=== PATIENT | female | born 1990 | race Caucasian/White ===

== ENCOUNTER 2022-03-20 17:54 | Emergency (ER) | payer SELFPAY ==
[2022-03-20 19:17] LABS: #Eosinphils 0.2 10x3/uL (0.0-0.5); #Monocytes 0.4 10x3/uL (0.0-1.1); #Neutrophils 5.8 10x3/uL (1.5-8.4); %Basophils 0.4 % (0.0-2.0); %Eosinophils 2.4 % (0.0-6.0); %Lymphocytes 20.7 % (18.0-47.0); %Monocytes 4.7 % (0.0-10.0); %Neutrophils 71.4 % (40.0-75.0); Hemoglobin 11.6 g/dL (12.0-15.5); Mean Corpuscular HGB CONC 33.5 g/dL (32.0-36.0); Mean Corpuscular Hemoglobin 30.4 pg (27.0-33.0); Mean Corpuscular Volume 90.6 fl (81.6-98.3); Mean Platelet Volume 9.3 fl (7.4-10.4); Platelet Count 276 10x3/uL (150-450); RBC Distribution Width 12.8 % (11.5-14.5); Red Blood Cell (RBC) Count 3.82 10x6/uL (3.90-5.03); White Blood Cell (WBC) Count 8.1 10x3/uL (3.5-10.5)
[2022-03-20 19:21] LABS: Bilirubin Neg (Negative); Blood, Urine Negative (Negative); Clarity Clear (Clear); Glucose, Urine (Dipstick) Normal (Negative); Ketone, Urine 15 mg/dL (Negative); Leukocyte 25 (Negative); Nitrite Negative (Negative); Protein, Urine (Dipstick) Negative (Neg-Trace); Specific Gravity, Urine 1.025 (1.002-1.036); Urobilinogen Normal mg/dL (Less than 2)
[2022-03-20 19:30] LABS: ALT (SGPT) 16 U/L (8-55); AST (SGOT) 20 U/L (5-34); Albumin 3.9 g/dL (3.5-5.0); Alkaline Phosphatase 49 U/L (40-110); Anion Gap 13 mmol/L (10-20); BUN (Urea Nitrogen) 13 mg/dL (7.0-18.7); Bilirubin, Total 0.3 mg/dL (0.2-1.2); Calc. Creatinine Clearance 0 mL/min (70-130); Calcium 9.3 mg/dL (7.8-10.44); Carbon Dioxide 24 mmol/L (22-29); Chloride 103 mmol/L (98-107); Globulin 3.3 g/dL (2.4-3.5); Glucose 138 mg/dL (70-105); Potassium 3.7 mmol/L (3.5-5.1); Protein, Total 7.2 g/dL (6.0-8.3); Sodium 136 mmol/L (136-145)
[2022-03-20 19:40] LABS: Bacteria/HPF 2+ HPF (None Seen); RBC/HPF 0-3 HPF (0-3); Squamous Epithelial 0-3 HPF (0-3)
[2022-03-20 19:41] LABS: Mucous/LPF 2+ LPF (<2+)
[2022-03-20 22:09] LABS: Fetal Membranes Rupture No Membranes Rupture (No Rupture)
[2022-03-22 15:08] LABS: GC by PCR *Indeterminate (NotDetected)
[2022-03-22 15:09] LABS: Chlamydia by PCR *Indeterminate (NotDetected)
== END 2022-03-20 22:53 | disposition home or self-care (01) ==
LOC: CSHERS 17:54
DX: O23.42 Unspecified infection of urinary tract in pregnancy, second trimester (principal); O23.592 Infection of other part of genital tract in pregnancy, second trimester; N89.8 Other specified noninflammatory disorders of vagina; Z3A.15 15 weeks gestation of pregnancy
CPT/HCPCS: 36415; 76815; 80053; 81003; 81015; 84112; 84702; 85025; 86900; 86901; 87086; 87480; 87491; 87510; 87591; 87660

== ENCOUNTER 2022-07-12 12:50 | Day surgery (SDC) | payer OTHER ==
[2022-07-12 13:20] VITALS: BMI 27.3
== END 2022-07-12 16:20 | disposition home health service (06) ==
LOC: CSHLD/OP 12:50
PROVIDERS: ATTEND Student in an Organized Health Care Education/Training Program
DX: O36.8130 Decreased fetal movements, third trimester, not applicable or unspecified (principal); O9A.213 Injury, poisoning and certain other consequences of external causes complicating pregnancy, third trimester; S39.91XA Unspecified injury of abdomen, initial encounter; Z3A.31 31 weeks gestation of pregnancy; Z98.818 Other dental procedure status; Z79.899 Other long term (current) drug therapy; W50.0XXA Accidental hit or strike by another person, initial encounter
CPT/HCPCS: 59025; 76819; 99282

== ENCOUNTER 2022-08-31 12:32 | Inpatient (IN) | payer SELFPAY ==
[~2022-08-31 12:32] MED LIST: Bupivacaine/Epinephrine 0.25% 30 ML VIAL ONE
[2022-08-31] MEDS ORDERED: hydrALAZINE 20 MG/ML VIAL SLOW IVP PRN ×2 (13:21→14:45)
[2022-08-31] MEDS ORDERED: Methylergonovine 0.2 MG/ML VIAL IM PRN (14:45)
[2022-08-31] MEDS ORDERED: Lactated Ringer's 1,000 ML IV SCH (14:45)
[2022-08-31] MEDS ORDERED: Butorphanol Tartrate 1 MG/ML VIAL SLOW IVP PRN (14:45)
[2022-08-31] MEDS ORDERED: Ibuprofen 800 MG TAB PO PRN (14:45)
[2022-08-31] MEDS ORDERED: Lidocaine 1% (PF) 30 ML VIAL SC PRN (14:45)
[2022-08-31] MEDS ORDERED: Promethazine HCl 25 MG/ML VIAL IM PRN ×2 (14:45→20:32)
[2022-08-31] MEDS ORDERED: Misoprostol 200 MCG TAB PR PRN (14:45)
[2022-08-31] MEDS ORDERED: HYDROcodone/Acetaminophen 5/325 mg Tablet PO PRN ×2 (14:45)
[2022-08-31] MEDS ORDERED: Ondansetron PF 4 MG/2 ML Vial IVP PRN ×2 (14:45→20:32)
[2022-08-31] MEDS ORDERED: NS w/ Oxytocin 30 units 500 ML IV SCH ×2 (14:45)
[2022-08-31 15:50] LABS: Mean Corpuscular HGB CONC 32.6 g/dL (32.0-36.0); Mean Corpuscular Hemoglobin 28.2 pg (27.0-33.0); Mean Corpuscular Volume 86.4 fl (81.6-98.3); Mean Platelet Volume 9.8 fl (7.4-10.4); Platelet Count 269 10x3/uL (150-450); RBC Distribution Width 14.6 % (11.5-14.5); Red Blood Cell (RBC) Count 4.26 10x6/uL (3.90-5.03); White Blood Cell (WBC) Count 9.9 10x3/uL (3.5-10.5)
[2022-08-31] MEDS ORDERED: Fentanyl 2 mcg/Bup 0.1% Cadd 100 ML ONE (15:58)
[2022-08-31 16:16] LABS: HBSAg Index 0.18 S/CO (0-0.99); Hep B Surf Ag Non-Reactive S/CO (NonReactive)
[2022-08-31 16:17] LABS: Syphilis Antibody Nonreactive (Nonreactive); Syphilis Antibody Index 0.06 S/CO (<1.00 Non-Reactive)
[2022-08-31] MEDS ORDERED: Acetaminophen 325 MG TAB PO PRN (20:32)
[2022-08-31] MEDS ORDERED: ePHEDrine Sulfate 50 MG/10 ML VIAL SLOW IVP PRN (20:32)
[2022-08-31] MEDS ORDERED: Moisturizing Cream (Eucerin) 113 GM JAR TOP PRN (20:32)
[2022-08-31] MEDS ORDERED: Lactated Ringer's 500 ML IV PRN (20:32)
[2022-08-31] MEDS ORDERED: diphenhydrAMINE 50 MG/ML VIAL IVP PRN (20:32)
[2022-08-31] MEDS ORDERED: Naloxone HCl 0.4 mg/ml Vial IVP PRN ×2 (20:32)
[2022-08-31] MEDS ORDERED: Communication Order-Pharmacy FS SCH (20:45)
[2022-08-31] MEDS ORDERED: Fentanyl 2 mcg/Bupivacaine 0.1% Cassette 100 ML EPIDURAL SCH (20:45)
[2022-09-01] MEDS ORDERED: Misoprostol 200 MCG TAB VAG PRN (02:51)
[2022-09-01] MEDS ORDERED: Boostrix 0.5 ML (Tdap) VIAL (>/=7 yrs of age) IM ONE (02:51)
[2022-09-01] MEDS ORDERED: Lanolin Ointment 7 GM TUBE TOP PRN (02:51)
[2022-09-01] MEDS ORDERED: Benzocaine-Menthol 82.5 ML CAN TOP PRN (02:51)
[2022-09-01] MEDS ORDERED: HYDROcodone/Acetaminophen 5/325 mg Tablet PO PRN ×2 (02:51)
[2022-09-01] MEDS ORDERED: hydrALAZINE 20 MG/ML VIAL SLOW IVP PRN (02:51)
[2022-09-01] MEDS ORDERED: Milk Of Magnesia 30 ML UDCUP PO PRN (02:51)
[2022-09-01] MEDS ORDERED: Bisacodyl 10 MG SUPP PR PRN (02:51)
[2022-09-01] MEDS ORDERED: NS w/ Oxytocin 30 units 500 ML IV SCH (03:00)
[2022-09-01] MEDS: Ibuprofen 800 MG TAB PO SCH ×3 (04:14→18:10)
[2022-09-01] MEDS: Ferrous Sulfate 325 MG TAB PO SCH ×2 (07:29→15:33)
[2022-09-01] MEDS: Docusate 100 MG CAP PO SCH ×2 (09:13→21:44)
[2022-09-01] MEDS: Prenatal Vitamin 1 TAB PO SCH (09:13)
[2022-09-02] MEDS: Ibuprofen 800 MG TAB PO SCH ×2 (02:31→11:32)
[2022-09-02] MEDS: Ferrous Sulfate 325 MG TAB PO SCH (07:29)
[2022-09-02] MEDS: Prenatal Vitamin 1 TAB PO SCH (08:18)
[2022-09-02] MEDS: Docusate 100 MG CAP PO SCH (08:18)
[2022-09-02 09:24] VITALS: BP 121/69; TEMP 97.7
== END 2022-09-02 11:55 | disposition home or self-care (01) | DRG 807 ==
LOC: CSHLD/OP 12:32 → CSHLD 15:00 → CSHPP 09-01 02:15
PROVIDERS: ADMIT Obstetrics & Gynecology; ATTEND Obstetrics & Gynecology
PROC: 10907ZC Drainage of Amniotic Fluid, Therapeutic from Products of Conception, Via Natural or Artificial Opening (ICD-10-PCS; principal; 2022-09-01)
PROC: 10E0XZZ Delivery of Products of Conception, External Approach (ICD-10-PCS; 2022-09-01)
DX: O76 Abnormality in fetal heart rate and rhythm complicating labor and delivery (principal); Z37.0 Single live birth; Z3A.38 38 weeks gestation of pregnancy; Z20.822 Contact with and (suspected) exposure to COVID-19; O69.81X0 Labor and delivery complicated by cord around neck, without compression, not applicable or unspecified
CPT/HCPCS: 51702; 85027; 86780; 86850; 86900; 86901; 87340; 99285; J2590